=== PATIENT | female | born 1965 | race Hispanic/Latino ===

== ENCOUNTER 2020-09-08 06:26 | Day surgery (SDC) | payer OTHER ==
[2020-09-05 13:14] VITALS: BP 155/94
[2020-09-05 15:34] LABS: BASOPHILS % (AUTO) 0.4 % (0.0-5.0); EOSINOPHILS % (AUTO) 2.3 % (0.0-8.0); HEMATOCRIT 45.3 % (36-48); LYMPHOCYTES % (AUTO) 35.6 % (21.0-51.0); MEAN CORPUSCULAR HEMOGLOBIN 26.6 pg (27.0-33.0); MEAN CORPUSCULAR HGB CONC 31.8 g/dL (32.0-36.0); MEAN CORPUSCULAR VOLUME 83.7 fL (79-99); MONOCYTES % (AUTO) 4.7 % (3.0-13.0); NEUTROPHILS % (AUTO) 56.3 % (40.0-77.0); PLATELET COUNT (AUTO) 181 K/uL (130-400); RED BLOOD CELL COUNT(AUTO) 5.41 MIL/uL (4.00-5.50); RED CELL DISTRIBUTION WIDTH 13.5 % (11.0-15.5); WHITE BLOOD COUNT (AUTO) 7.3 K/uL (4.8-10.8)
[2020-09-05 15:35] LABS: APPEARANCE,URINE Clear (CLEAR); BILIRUBIN,URINE Negative (NEGATIVE); COLOR,URINE Yellow (YELLOW); GLUCOSE, URINE (UA) Negative (NEGATIVE); KETONES,URINE Negative (NEGATIVE); LEUKOCYTE ESTERASE ,URINE Moderate (NEGATIVE); NITRATE,URINE Negative (NEGATIVE); OCCULT BLOOD,URINE Negative (NEGATIVE); PH,URINE 5.5 (5.0-8.0); PROTEIN,URINE Negative (NEGATIVE); UROBILINOGEN,URINE 0.2 mg/dL (0.2-1.0)
[2020-09-05 15:48] LABS: CREATININE 0.9 mg/dL (0.5-1.5); POTASSIUM 3.4 mmol/L (3.5-5.1)
[2020-09-05 15:48] LABS: RBC,URINE 0-1 /HPF (0-1)
[2020-09-05 15:49] LABS: BACTERIA,URINE Few /HPF (None Seen); SQUAMOUS EPITHELIAL CELL,UR Few /HPF (0-2)
[2020-09-05 16:21] LABS: INR 0.99 (0.85-1.15); PROTHROMBIN TIME 10.8 SEC (9.6-11.6)
[2020-09-05 16:23] LABS: PARTIAL THROMBOPLASTIN TIME 28.2 SEC (26.3-35.5)
[2020-09-08] VITALS (7 sets, daily range): BP systolic 120–161; BP diastolic 67–83
[~2020-09-08] VITALS: Ht 165.1 cm; Wt 86.5 kg
[~2020-09-08 06:26] MED LIST: ASPI-1443 PO
[2020-09-08] MEDS ORDERED: SODIUM CHLORIDE 0.9% 1000ML 1,000 ML IV ONE (07:08)
[2020-09-08] MEDS ORDERED: METO-408 PO (08:22)
[2020-09-08] MEDS ORDERED: KRIL1CAP4 PO (08:22)
[2020-09-08] MEDS ORDERED: FLUT1BLS IH (08:22)
[2020-09-08] MEDS ORDERED: CLOP75TA14 PO (08:22)
[2020-09-08] MEDS ORDERED: OMEG-148 PO (08:22)
[2020-09-08] MEDS ORDERED: POTA20TA82 PO (08:22)
[2020-09-08] MEDS ORDERED: CHOL-34 PO (08:22)
[2020-09-08] MEDS ORDERED: NITR0.4T50 SL (08:22)
[2020-09-08] MEDS ORDERED: ALBUHFA IH (08:22)
[2020-09-08] MEDS ORDERED: SODIUM BICARB 50MEQ 50ML VIAL 50 ML ONE (09:20)
[2020-09-08] MEDS ORDERED: NICARDIPINE HCL 25 MG/10 ML ML IV ONE (09:21)
[2020-09-08] MEDS ORDERED: LIDOCAINE HCL 2% 20ML ONE (09:21)
[2020-09-08] MEDS ORDERED: NITROGLYCERIN 2 MG/VIAL VIAL IV ONE (09:21)
[2020-09-08] MEDS ORDERED: IOHEXOL 350 MG/ML 100ML INFUS..BTL IV ONE (09:21)
[2020-09-08] MEDS ORDERED: HEPARIN SODIUM 1000UNIT/ML 10ML VIAL ONE (09:21)
[2020-09-08] MEDS ORDERED: IOHEXOL-350 75 ML VIAL IV ONE (09:21)
[2020-09-08] MEDS ORDERED: BIVALIRUDIN 250 MG/VIAL IV ONE (12:57)
[2020-09-08] MEDS ORDERED: MIDAZOLAM HCL 1 MG/ML 2ML VIAL ONE (12:57)
[2020-09-08] MEDS ORDERED: FENTANYL CITRATE PF 50 MCG/1 ML 2ML VIAL ONE (12:57)
[2020-09-08] MEDS ORDERED: SODIUM CHLORIDE 0.9% 1000ML 1,000 ML IV SCH (13:30)
[2020-09-08] MEDS ORDERED: METHYLPREDNISOLONE SOD SUCC 125MG/2ML VIAL ONE (13:36)
[2020-09-08] MEDS ORDERED: DiphenhydrAMINE HCL 50 MG/ML VIAL ONE (13:36)
== END 2020-09-08 16:40 | disposition home or self-care (01) ==
LOC: DAH 06:26
PROVIDERS: ATTEND Internal Medicine Cardiovascular Disease
DX: R07.89 Other chest pain (principal); R06.09 Other forms of dyspnea; I65.23 Occlusion and stenosis of bilateral carotid arteries; E78.00 Pure hypercholesterolemia, unspecified; I10 Essential (primary) hypertension; Z79.82 Long term (current) use of aspirin; Z79.01 Long term (current) use of anticoagulants; Z79.899 Other long term (current) drug therapy
CPT/HCPCS: 36415 ×2; 71045; 80048; 81001; 84132; 85025; 85610; 85730; 87088; 93005; 93458; A4215; A4216; A4221; A4222; A4223 ×3; A4606; A4663; C1760; C1894 ×2; J1200; J1644; J2250; J2930; J3010; J3490 ×3; J7030; Q9965; Q9967 ×2; 99156; 99157; J0583